=== PATIENT | female | born 1990 | race Caucasian/White ===

== ENCOUNTER 2023-10-04 08:11 | Outpatient (AMB) | payer BC, SELFPAY ==
--- NOTE | 2023-10-04 08:13 | MHC.OFFVIS ---
Intake Vital Signs 10/04/23 08:23 Height 5 ft 4 in Weight 127 lb 6 oz BMI 21.9 BP 122/68 Blood Pressure Location Rt brachial Position Sitting Respiration 15 Pulse 95 Pulse Source Pulse Oximeter Pulse Oximetry (%) 98 Oxygen Delivery Method Room Air Intake Visit Reasons: 1yr follow up SEIZURES-Confirmed Intake Note: Pt presents to the office for a one year follow up for seizures. Pt reports she has been well. She denies any seizures this past year. 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 The next day she was very tired and was taking an online exam and was under a lot of stress. she passed out and had a generalized tonic clonic seizure. she had tongue biting . No urinary incontinence. It lasted few min and was very fatigued . she had CT scan in the hospital and was discharged. she had EEG which was abnormal and MRI with linus was normal She was seen by Dr. Molina initially and went for opinion to [facility] .she was started on lamictal 200mg bid . No seizures since then . she had 2 children since then and continued the same dose of medications with prenatals and folic acid . Both children are healthy and were breast fed. she is currently not interested in trial of tapering medications because of her busy professional and personal life, [facility] Medical History Seizure Surgical History [place] teeth extracted Family History Mother Thyroid condition Social History Alcohol intake: current Alcohol intake frequency: a few times a month Patient Tobacco Use Status: Never used Tobacco Physical Exam Vital Signs: Last Vital Signs Pulse 95 10/04/23 08:23 Resp 15 10/04/23 08:23 BP 122/68 10/04/23 08:23 Pulse Ox 98 10/04/23 08:23 Oxygen Delivery Method Room Air 10/04/23 08:23 BMI result Body Mass Index 21.9 Const General: cooperative, healthy appearing, comfortable and no acute distress Nutritional Appearance: average body habitus Orientation/consciousness: patient oriented x3 Limitations: no limitations HEENT Head: Yes normal to inspection, Yes normocephalic and Yes atraumatic Face and sinus: Yes normal facial exam Eyes Pupils: Equal, round and reactive pupils present Neck Neck: Yes normal visual inspection, Yes full ROM and Yes no meningeal signs Neuro General: patient oriented x3, gait normal, tone normal, moves all extremities, no meningeal signs and no focal motor deficits Cranial nerves: Yes Facial sensation intact/muscles of mastication intact, Yes Equal, round and reactive pupils present, Yes Bilaterally intact EOM present, Yes Nystagmus not present, Yes Normal facial strength present, Yes Midline tongue present and Yes Symmetric palate elevation present Cognition (Neuro): normal cognition Gait exam (Neuro): Normal gait present Coordination: [id number] test normal Psych Appearance: grossly normal Mental Status: mental status grossly normal Speech and movement: Normal speech and movement present Affect: normal affect Assessment & Plan Assessment & Plan (1) Seizure: Code(s): R56.9 - Unspecified convulsions Plan Continue lamictal 200mg bid CBC CMP Counseled on prenatals and folic acid if she plans will consider repeat EEG Orders: Orders Complete Blood Count Auto Diff Today R56.9 - Unspecified convulsions Comprehensive Met. Panel Today R56.9 - Unspecified convulsions Medications: Refilled lamotrigine 200 mg (2 x 100 mg) PO BID 90 days 360 tabs 6RF Coding Level of Care Code Est Pt Level 4 (95928) Diagnoses Seizure R56.9
[2023-10-04 08:23] VITALS: BP 122/68; PULSE 95; RESP 15; O2SAT 98; BMI 21.9
== END 2023-10-04 08:40 | disposition home or self-care (01) ==
PROVIDERS: Visit Provider Psychiatry & Neurology Neurology
DX: R56.9 Unspecified convulsions (principal)
CPT/HCPCS: 99214

== ENCOUNTER → 2023-10-04 08:11 | Outpatient (BNVA) | payer BC, SELFPAY | PROVIDERS: Visit Provider Psychiatry & Neurology Neurology | DX: R56.9 Unspecified convulsions (principal) ==

== ENCOUNTER 2024-10-04 07:28 | Outpatient (AMB) | payer BC, SELFPAY ==
[2024-10-04 07:33] VITALS: BMI 21.3
--- NOTE | 2024-10-04 07:33 | MHC.OFFVIS ---
Vital Signs 10/04/24 07:33 Height 5 ft 4 in Weight 124 lb BMI 21.3 Intake Visit Reasons: 1 yr f/u - Seizures Intake Note: Patient presents for 1 year follow up Allergies No Known Allergies Allergy (Verified 10/04/24 07:35) HPI Comments Details: 34y/o female comes for follow up of seizure disorder. SHe is 35 weeks and is doing well. No seizures Her first seizure was in 2011 - she was in college, she had partied the previous night, sleep deprived, had alcohol . The next day she was very tired and was taking an online exam and was under a lot of stress. she passed out and had a generalized tonic clonic seizure. she had tongue biting . No urinary incontinence. It lasted few min and was very fatigued . she had CT scan in the hospital and was discharged. she had EEG which was abnormal and MRI with linus was normal She was seen by Dr. Molina initially and went for opinion to [facility] .she was started on lamictal 200mg bid . No seizures since then . she had 2 children since then and continued the same dose of medications with prenatals and folic acid . Both children are healthy and were breast fed. she is currently not interested in trial of tapering medications because of her busy professional and personal life, [facility] Medical History Seizure Surgical History [place] teeth extracted Family History Mother Thyroid condition Social History Alcohol intake: current Alcohol intake frequency: a few times a month Patient Tobacco Use Status: Never used Tobacco Physical Exam Vital Signs: BMI result Body Mass Index 21.3 Const General: cooperative, healthy appearing, comfortable and no acute distress Nutritional Appearance: average body habitus Orientation/consciousness: patient oriented x3 Limitations: no limitations HEENT Head: Yes normal to inspection, Yes normocephalic and Yes atraumatic Face and sinus: Yes normal facial exam Eyes Pupils: Equal, round and reactive pupils present Neck Neck: Yes normal visual inspection, Yes full ROM and Yes no meningeal signs Neuro General: patient oriented x3, gait normal, tone normal, moves all extremities, no meningeal signs and no focal motor deficits Cranial nerves: Yes Facial sensation intact/muscles of mastication intact, Yes Equal, round and reactive pupils present, Yes Bilaterally intact EOM present, Yes Nystagmus not present, Yes Normal facial strength present, Yes Midline tongue present and Yes Symmetric palate elevation present Cognition (Neuro): normal cognition Gait exam (Neuro): Normal gait present Coordination: [id number] test normal Psych Appearance: grossly normal Mental Status: mental status grossly normal Speech and movement: Normal speech and movement present Affect: normal affect Assessment & Plan Assessment & Plan (1) Seizure: Code(s): R56.9 - Unspecified convulsions Category: Medical Plan Continue lamictal 200mg bid CBC CMP will consider repeat EEG Coding Level of Care Code Est Pt Level 4 (99984) Diagnoses Seizure R56.9
== END 2024-10-04 07:50 | disposition home or self-care (01) ==
PROVIDERS: PCP Internal Medicine; Visit Provider Psychiatry & Neurology Neurology
DX: R56.9 Unspecified convulsions (principal)
CPT/HCPCS: 99214

== ENCOUNTER 2025-10-04 07:30 | Outpatient (AMB) | payer BC, SELFPAY ==
--- NOTE | 2025-10-04 07:31 | A.OFFVIS_ITS ---
Vital Signs 10/04/25 07:32 Height 5 ft 4 in Weight 128 lb 2 oz BMI 22.0 BP 100/64 Blood Pressure Location Rt brachial Position Sitting Pulse 95 Pulse Source Pulse Oximeter Pulse Oximetry (%) 99 Oxygen Delivery Method Room Air Intake Visit Reasons: 1 yr f/u - Seizures Intake Note: Follow up Seizure Promotional Demonstrator Required: No Accompanied by: Self / Same As Patient Allergies No Known Allergies Allergy (Verified 10/04/25 07:32) Medication List - Last Reconciled 10/04/25 by Hannah Mendoza MD COVID-19 antigen test ([employer] COVID-19 Ag Self Test kit) As directed lamotrigine 200 mg (2 x 100 mg) PO BID 90 days PNV [id number] 30 mg iron-10 mg iron-1 mg caps PO HPI Comments Details: 35y/o female comes for follow up of seizure disorder. SHe had her baby 11 mths ago via C section with no complications No seizures Her first seizure was in 2011 - she was in college, she had partied the previous night, sleep deprived, had alcohol . The next day she was very tired and was taking an online exam and was under a lot of stress. she passed out and had a generalized tonic clonic seizure. she had tongue biting . No urinary incontinence. It lasted few min and was very fatigued . she had CT scan in the hospital and was discharged. she had EEG which was abnormal and MRI with linus was normal She was seen by Dr. Molina initially and went for opinion to [facility] .she was started on lamictal 200mg bid . No seizures since then . she had 2 children since then and continued the same dose of medications with prenatals and folic acid . Both children are healthy and were breast fed. she is currently not interested in trial of tapering medications because of her busy professional and personal life, [facility] Medical History Seizure Surgical History [place] teeth extracted Family History Mother Thyroid condition Social History Alcohol intake: current Alcohol intake frequency: a few times a month Patient Tobacco Use Status: Never used Tobacco Physical Exam Vital Signs: Last Vital Signs Pulse 95 10/04/25 07:32 BP 100/64 10/04/25 07:32 Pulse Ox 99 10/04/25 07:32 Oxygen Delivery Method Room Air 10/04/25 07:32 BMI result Body Mass Index 22.0 Const General: cooperative, healthy appearing, comfortable and no acute distress Nutritional Appearance: average body habitus Orientation/consciousness: patient oriented x3 Limitations: no limitations HEENT Head: Yes normal to inspection, Yes normocephalic and Yes atraumatic Face and sinus: Yes normal facial exam Eyes Pupils: Equal, round and reactive pupils present Neck Neck: Yes normal visual inspection, Yes full ROM and Yes no meningeal signs Neuro General: patient oriented x3, gait normal, tone normal, moves all extremities, no meningeal signs and no focal motor deficits Cranial nerves: Yes Facial sensation intact/muscles of mastication intact, Yes Equal, round and reactive pupils present, Yes Bilaterally intact EOM present, Yes Nystagmus not present, Yes Normal facial strength present, Yes Midline tongue present and Yes Symmetric palate elevation present Cognition (Neuro): normal cognition Gait exam (Neuro): Normal gait present Coordination: [id number] test normal Psych Appearance: grossly normal Mental Status: mental status grossly normal Speech and movement: Normal speech and movement present Affect: normal affect Assessment & Plan Assessment & Plan (1) Seizure: Code(s): R56.9 - Unspecified convulsions Category: Medical Plan Continue lamictal 200mg bid CBC CMP - will review from PCP will consider repeat EEG Medications: Refilled lamotrigine 200 mg (2 x 100 mg) PO BID 360 tabs 6RF 90 days Coding Level of Care Code Est Pt Level 4 (67488) Complex EM visit Add On G2211 Diagnoses Seizure R56.9
[2025-10-04 07:32] VITALS: BP 100/64; PULSE 95; O2SAT 99; BMI 22.0
== END 2025-10-04 08:05 | disposition home or self-care (01) ==
LOC: HO.HSMS 07:30
PROVIDERS: PCP Internal Medicine; Visit Provider Psychiatry & Neurology Neurology
DX: R56.9 Unspecified convulsions (principal)
CPT/HCPCS: 99214